=== PATIENT | male | born 1965 | race Caucasian/White ===

== ENCOUNTER → 2017-08-16 | Day surgery (SDC) | payer BC ==
[~2017-08-16] MED LIST: AUGMENTIN1 TA2 PO; CYCLOBENZAPRINE10 MG PO; HYDROCODONE1 TABLET PO; OMEPRAZOLE40 MG PO; PREDNISONE 5MG.5 MG PO
[2017-08-16 10:46] LABS: BUN 11 mg/dL (7-18)
[2017-08-16 10:48] LABS: LYMPH # 1.8 K/mm3 (0.7-4.5); LYMPH % 33.1 % (10-50)
[2017-08-16 10:49] LABS: HEMOGLOBIN 14.1 g/dL (14.1-18.0)
[2017-08-16 10:52] LABS: GFR (ESTIMATED) 63 ML/MIN (>60)
--- NOTE | 2017-08-16 13:11 | RADIOLOGY REPORT PS360 ---
CARDIAC CATHETERIZATION DATE OF CATHETERIZATION:08/16/2017 12:55 PM PROCEDURES: 1. Left heart catheterization 2. Left ventriculogram 3. Selective coronary angiogram INDICATION FOR TEST: 1. Abnormal Myoview 2. Angina pectoris 3. Numerous risk factors for coronary artery disease Informed consent was obtained prior to the procedure. COMPLICATIONS: None ESTIMATED BLOOD LOSS: Less than 10 ml. TECHNIQUE: One percent lidocaine used to anesthetize the right anterior aspect of the wrist. The right radial artery was accessed via the Seldinger technique. A 6 [place] sheath was placed in the right radial artery. 2.5 mg of verapamil, 800 mcg of nitroglycerin and 5000 U Heparin were given through the arterial sheath. The Mariella catheter was also used to perform left heart catheterization and left ventriculography. At the end of the procedure the patient was transferred to the post-op holding area in stable condition for arterial sheath removal. ANGIOGRAPHIC RESULTS: 1. The left main artery normal 2. The left anterior descending artery normal 3. The circumflex artery normal 4. The right coronary artery dominant normal 5. The STOUT ventriculogram reveals 65% 6. The left ventricular end-diastolic pressure normal 10 mmHg IMPRESSION: 1. Normal coronary arteries. 2. Normal ejection fraction 3. Normal left ventricular end-diastolic pressure PLAN: 1. Risk factor modification
[2017-08-16 16:05] VITALS: BP 137/73
== END ==
LOC: CATHLAB 09:58
PROVIDERS: Internal Medicine
PROC: B2111ZZ Fluoroscopy of Multiple Coronary Arteries using Low Osmolar Contrast (ICD-10-PCS; 2017-08-16)
PROC: B2151ZZ Fluoroscopy of Left Heart using Low Osmolar Contrast (ICD-10-PCS; 2017-08-16)
PROC: 4A023N7 Measurement of Cardiac Sampling and Pressure, Left Heart, Percutaneous Approach (ICD-10-PCS; principal; 2017-08-16 12:15)
DX: R07.9 Chest pain, unspecified (principal); R94.39 Abnormal result of other cardiovascular function study
CPT/HCPCS: C1725; C1760; C1769; J1644; Q9967